=== PATIENT | female | born 1990 | race Caucasian/White ===

== ENCOUNTER 2019-12-21 14:33 | Observation (INO) | payer MEDICAID, OTHER ==
[~2019-12-21] VITALS: Ht 160 cm; Wt 129.3 kg
[2019-12-21] MEDS ORDERED: BREX3TAB PO (14:54)
[2019-12-21] MEDS ORDERED: CITA40TA19 PO (14:54)
[2019-12-21 15:43] LABS: BILIRUBIN,URINE NEGATIVE (NEGATIVE); CLARITY,URINE SL CLOUDY; COLOR,URINE YELLOW; GLUCOSE, URINE (UA) NEGATIVE (NEGATIVE); KETONES,URINE NEGATIVE (NEGATIVE); LEUKOCYTE ESTERASE ,URINE NEGATIVE (NEGATIVE); NITRITE,URINE NEGATIVE (NEGATIVE); PH,URINE 5.5 (5-9); PROTEIN,URINE NEGATIVE (NEGATIVE)
--- NOTE | 2019-12-21 15:43 | ED Psychosocial ---
General Chief Complaint: Psych/Social Disorder Stated Complaint: SUICIDAL Nursing Triage Note: PT STATES HAVING SUICIDAL THOUGHTS, FIRST TIME OF HAVING THESE THOUGHTS, STRESS FROM KIDS AND WORK, RECENT CHANGE IN MEDICATION, NO SPECIFIC PLAN. History of Present Illness Date Seen by Provider: Dec 21, 2019 Time Seen by Provider: 14:45 Initial Comments 29 year old female presents for suicidal ideation. She reports increased stress at home. She's been having difficulty sleeping, she takes bendaryl nightly and has tried melatonin. She has been on multiple antidepressants she is currently on citalopram, has been taking this for approximately one and a half weeks. She does have an appointment with mental health at the end of this month to [facility]. No plan for suicide but she has thought about several options. No thoughts of her harming others. She does think about different ways that she could harm herself including using razors to cut herself or causing a motor vehicle accident, the incidence are increasing in frequency. She has a 9 and 2-year-old children at home, that add to the stress. Her mother is available to help with childcare and for support system for her. She also reports anxiety, she takes Vistaril 2-3 times daily for this. Patient feels she has reached a point that she is not safe at home alone or with her kids, she doesn't feel she has the self control to not harm herself. She is very tearful. Timing/Duration: this morning, getting worse Severity: moderate Associated Symptoms: impaired concentration, insomnia, suicidal ideation Allergies and Home Medications Allergies Coded Allergies: No Known Drug Allergies (Unverified , 12/21/19) Home Medications Brexpiprazole 3 Mg Tablet, 3 MG PO DAILY, (Reported) Citalopram Hydrobromide 40 Mg Tablet, 40 MG PO DAILY, (Reported) Patient Home Medication List Home Medication List Reviewed: Yes Review of Systems Constitutional: no symptoms reported, see HPI : No Psychiatric/Neurological: See HPI, Depressed, Emotional Problems All Other Systems Reviewed Negative Unless Noted: Yes Past Wzjanav-Eocejc-Lufhbg Hx Past Med/Social Hx: Reviewed Nursing Past Med/Soc Hx Patient Social History Alcohol Use: Denies Use Recreational Drug Use: No Smoking Status: Never a Smoker Recent Foreign Travel: No Contact w/Someone Who Travel: No Recent Infectious Disease Expo: No Recent Hopitalizations: No Seasonal Allergies Seasonal Allergies: Yes Past Medical History Surgeries: Yes Section, Gallbladder Respiratory: Yes Asthma Cardiac: No Neurological: Yes Headaches /Migraines : No Last Menstrual Period: Dec 08, 2019 Genitourinary: No Gastrointestinal: No Musculoskeletal: No Endocrine: No HEENT: No Cancer: No Psychosocial: Yes Anxiety, Depression Integumentary: No Physical Exam Vital Signs - First Documented 12/21/19 14:40 Temp 37.4 Pulse 99 Resp 22 B/P (MAP) 140/86 (104) Pulse Ox 97 O2 Delivery Room Air Capillary Refill : Less Than 3 Seconds Height, Weight, BMI Height: '" Weight: lbs. oz. kg; 50.00 BMI Method: General Appearance: WD/WN, no apparent distress HEENT: PERRL/EOMI, normal ENT inspection, TMs normal, pharynx normal Neck: non-tender, full range of motion, supple, normal inspection Respiratory: chest non-tender, lungs clear, normal breath sounds Cardiovascular: normal peripheral pulses, regular rate, rhythm, no edema Gastrointestinal: normal bowel sounds, non tender, soft Neurologic/Psychiatric: take out waiter II-XII nml as tested, no motor/sensory deficits, alert, normal mood/affect, oriented x 3 Appearance/Memory: appropriate appearance Behavior/Eye Contact: cooperative, normal speech, avoids eye contact, other (flat affect) Thoughts/Hallucinations: normal thought pattern Skin: normal color, warm/dry Lymphatic: no adenopathy Progress/Results/Core Measures Results/Orders Lab Results Laboratory Tests Test 12/21/19 15:27 12/21/19 15:54 12/21/19 19:04 Range/Units Urine Color YELLOW Urine Clarity SL CLOUDY Urine pH 5.5 5-9 Urine Specific [place] >=1.030 1.016-1.022 Urine Protein NEGATIVE NEGATIVE Urine Glucose (UA) NEGATIVE NEGATIVE Urine Ketones NEGATIVE NEGATIVE Urine Nitrite NEGATIVE NEGATIVE Urine Bilirubin NEGATIVE NEGATIVE Urine Urobilinogen 1.0 < = 1.0 MG/DL Urine Leukocyte Esterase NEGATIVE NEGATIVE Urine RBC (Auto) TRACE-I NEGATIVE Urine RBC NONE /HPF Urine WBC RARE /HPF Urine Crystals NONE /LPF Urine Bacteria FEW H /HPF Urine Casts NONE /LPF Urine Mucus NEGATIVE /LPF Urine Culture Indicated NO Urine Opiates Screen NEGATIVE NEGATIVE Urine Oxycodone Screen NEGATIVE NEGATIVE Urine Methadone Screen NEGATIVE NEGATIVE Urine Propoxyphene Screen NEGATIVE NEGATIVE Urine Barbiturates Screen NEGATIVE NEGATIVE Ur Tricyclic Antidepressants Screen NEGATIVE NEGATIVE Urine Phencyclidine Screen NEGATIVE NEGATIVE Urine Amphetamines Screen NEGATIVE NEGATIVE Urine Methamphetamines Screen NEGATIVE NEGATIVE Urine Benzodiazepines Screen NEGATIVE NEGATIVE Urine Cocaine Screen NEGATIVE NEGATIVE Urine Cannabinoids Screen POSITIVE H NEGATIVE White Blood Count 9.1 4.3-11.0 10^3/uL Red Blood Count 4.20 3.80-5.11 10^6/uL Hemoglobin 11.2 L 11.5-16.0 g/dL Hematocrit 35 35-52 % Mean Corpuscular Volume 82 80-99 fL Mean Corpuscular Hemoglobin 27 25-34 pg Mean Corpuscular Hemoglobin Concent 32 32-36 g/dL Red Cell Distribution Width 13.6 10.0-14.5 % Platelet Count 331 130-400 10^3/uL Mean Platelet Volume 10.4 9.0-12.2 fL Immature Granulocyte % (Auto) 0 % Neutrophils (%) (Auto) 65 42-75 % Lymphocytes (%) (Auto) 27 12-44 % Monocytes (%) (Auto) 6 0-12 % Eosinophils (%) (Auto) 1 0-10 % Basophils (%) (Auto) 0 0-10 % Neutrophils # (Auto) 5.9 1.8-7.8 10^3/uL Lymphocytes # (Auto) 2.5 1.0-4.0 10^3/uL Monocytes # (Auto) 0.5 0.0-1.0 10^3/uL Eosinophils # (Auto) 0.1 0.0-0.3 10^3/uL Basophils # (Auto) 0.0 0.0-0.1 10^3/uL Immature Granulocyte # (Auto) 0.0 0.0-0.1 10^3/uL Sodium Level 141 135-145 MMOL/L Potassium Level 3.6 3.6-5.0 MMOL/L Chloride Level 104 98-107 MMOL/L Carbon Dioxide Level 27 21-32 MMOL/L Anion Gap 10 5-14 MMOL/L Blood Urea Nitrogen 11 7-18 MG/DL Creatinine 0.78 0.60-1.30 MG/DL Estimat Glomerular Filtration Rate > 60 BUN/Creatinine Ratio 14 Glucose Level 103 70-105 MG/DL Calcium Level 9.1 8.5-10.1 MG/DL Corrected Calcium 9.0 8.5-10.1 MG/DL Total Bilirubin 0.4 0.1-1.0 MG/DL Aspartate Amino Transf (AST/SGOT) 17 5-34 U/L Alanine Aminotransferase (ALT/SGPT) 23 0-55 U/L Alkaline Phosphatase 69 40-136 U/L Total Protein 7.5 6.4-8.2 GM/DL Albumin 4.1 3.2-4.5 GM/DL TSH [place] Testing 2.93 0.35-4.94 UIU/ML Salicylates Level < 5.0 L 5.0-20.0 MG/DL Acetaminophen Level < 10 L 10-30 UG/ML Serum Alcohol < 10 <10 MG/DL Coronavirus 2019 (SHIRA) Negative Negative My Orders Orders - CEDRIC SHEIKH Urine Bedside (12/21/19 14:40) Ua Culture If Indicated (12/21/19 14:40) Cbc With Automated Diff (12/21/19 14:40) Comprehensive Metabolic Panel (12/21/19 14:40) Alcohol (12/21/19 14:40) Drug Screen Stat (Urine) (12/21/19 14:40) Acetaminophen (12/21/19 14:40) Salicylate (12/21/19 14:40) Ekg Tracing (12/21/19 14:40) Ed Iv/Invasive Line Start (12/21/19 14:40) Thyroid Analyzer (12/21/19 14:40) Monitor-Rhythm Ecg Trace Only (12/21/19 14:40) Acetaminophen Tablet/Caplet (Tylenol T (12/21/19 16:46) General/Regular (12/21/19 Dinner) Covid 19 Inhouse Test (12/21/19 18:56) Vital Signs/I&O 12/21/19 12/21/19 12/21/19 14:40 17:30 20:21 Temp 37.4 37.4 36.7 Pulse 99 82 Resp 22 20 B/P (MAP) 140/86 (104) 144/87 (104) Pulse Ox 97 94 O2 Delivery Room Air Room Air Blood Pressure Mean: 104 Progress Progress Note : Time: 14:45 Progress Note Patient seen and evaluated, will obtain labs. Spoke to [facility] mental health, they can make outpatient plan for her. Patient and this provider do not feel she can be managed outpatient, as her suicidal thoughts are increasing and she feels that she can no longer control her ideations, especially if home alone or in her car. A friend drove her here and her mother is watching the children. 1530 discussed options and patient would prefer consideration for in patient management. 1600 no bed available at [place] or [facility]. Patient requesting Tylenol for headache, will give 650 mg orally. 1700 Bed available at [place], records faxed to review. Patient denies any complaints at this time. 1800 Follow up with [place], they did not receive fax, records sent again. Patient has no complaints at this time dinner tray ordered. 1840 Spoke to [place], they require patient to have a Negative COVID-19 test, will complete in house test. They will review all requests from [phone] tonight. 191 No M-H beds at [facility], [facility] or [facility]. Patient using her phone and exam room at this time. [address] Coyne, agreed to admit here with tele-sitter. Will arrange out-patient MH. 1944 patient agreeable with plan to admit here overnight. No requests at this time. Initial ECG Impression Date: Dec 21, 2019 Initial ECG Impression Time: 15:07 Initial ECG Rate: 99 Initial ECG Rhythm: Normal Sinus Initial ECG Intervals: Normal Initial ECG Intervals MN 152, QRSD 80, QT 344, QTc 442. [place] P 50, QRS 44, T 29 Initial ECG Impression: Normal Initial ECG Comparisson: No Previous ECG Available Departure Impression Primary Impression: Depression Qualified Codes: F32.9 - Major depressive disorder, single episode, unspecified Additional Impression: Suicidal ideations Disposition: ADMITTED INPATIENT Condition: Stable Admissions Decision to Admit Reason: Admit from ER (General) Decision to Admit/Date: Dec 21, 2019 Time/Decision to Admit Time: 19:00 Departure-Patient Inst. Referrals: [facility] Add. Discharge Instructions: You have an appt with Mental/Behavioral Health at [address] on Dec 28 at 8:00 am, Betty Mota. Call for appt with Francine Trimble, if symptoms are not improving or worsen, any medication changes. Call [phone] to speak to a mental health provider, 29/09. Call 911, if you feel thoughts to harm yourself or others. Find a hobby or start walking 15 min daily. All discharge instructions reviewed with patient and/or family. Voiced understanding. Copy Copies To 1: JOSIAS CALIX AMY ARNP Dec 21, 2019 15:43
[2019-12-21 16:01] LABS: BASOPHILS % (AUTO) 0 % (0-10); EOSINOPHILS # (AUTO) 0.1 10^3/uL (0.0-0.3); EOSINOPHILS % (AUTO) 1 % (0-10); HEMATOCRIT 35 % (35-52); HEMOGLOBIN 11.2 g/dL (11.5-16.0); LYMPHOCYTES # (AUTO) 2.5 10^3/uL (1.0-4.0); LYMPHOCYTES % (AUTO) 27 % (12-44); MEAN CORPUSCULAR HEMOGLOBIN 27 pg (25-34); MEAN CORPUSCULAR HGB CONC 32 g/dL (32-36); MEAN CORPUSCULAR VOLUME 82 fL (80-99); MEAN PLATELET VOLUME 10.4 fL (9.0-12.2); MONOCYTES # (AUTO) 0.5 10^3/uL (0.0-1.0); MONOCYTES % (AUTO) 6 % (0-12); NEUTROPHILS # (AUTO) 5.9 10^3/uL (1.8-7.8); NEUTROPHILS % (AUTO) 65 % (42-75); PLATELET COUNT 331 10^3/uL (130-400); WHITE BLOOD COUNT 9.1 10^3/uL (4.3-11.0)
[2019-12-21 16:03] LABS: AMPHETAMINE SCREEN, URINE NEGATIVE (NEGATIVE); BARBITURATE SCREEN URINE NEGATIVE (NEGATIVE); BENZODIAZEPINES SCREEN URINE NEGATIVE (NEGATIVE); CANNABINOID SCREEN, URINE POSITIVE (NEGATIVE); COCAINE SCREEN URINE NEGATIVE (NEGATIVE); METHADONE STAT NEGATIVE (NEGATIVE); METHAMPHETAMINE SCREEN URINE S NEGATIVE (NEGATIVE); OPIATE SCREEN URINE NEGATIVE (NEGATIVE); OXYCODONE STAT NEGATIVE (NEGATIVE); PROPOXYPHENE STAT NEGATIVE (NEGATIVE); TRICYCLIC ANTIDEPRESSANTS SCRE NEGATIVE (NEGATIVE)
[2019-12-21 16:14] LABS: BACTERIA,URINE FEW /HPF; WBC,URINE RARE /HPF
[2019-12-21 16:14] LABS: ALBUMIN 4.1 GM/DL (3.2-4.5); CHLORIDE 104 MMOL/L (98-107); POTASSIUM 3.6 MMOL/L (3.6-5.0); SODIUM 141 MMOL/L (135-145)
[2019-12-21 16:15] LABS: CALCIUM 9.1 MG/DL (8.5-10.1)
[2019-12-21 16:16] LABS: GLUCOSE 103 MG/DL (70-105)
[2019-12-21 16:17] LABS: CARBON DIOXIDE 27 MMOL/L (21-32); TOTAL PROTEIN 7.5 GM/DL (6.4-8.2)
[2019-12-21 16:18] LABS: BILIRUBIN,TOTAL 0.4 MG/DL (0.1-1.0)
[2019-12-21 16:20] LABS: ALKALINE PHOSPHATASE 69 U/L (40-136); CREATININE SERUM 0.78 MG/DL (0.60-1.30); GFR ESTIMATED > 60
[2019-12-21 16:21] LABS: BUN/CREATININE RATIO 14
[2019-12-21 16:22] LABS: ACETAMINOPHEN < 10 UG/ML (10-30)
[2019-12-21 16:23] LABS: ALANINE AMINOTRANSFERASE 23 U/L (0-55); SALICYLATE < 5.0 MG/DL (5.0-20.0)
[2019-12-21] MEDS ORDERED: ACETAMINOPHEN 325 MG TABLET PO STA (16:46)
--- NOTE | 2019-12-21 19:32 | NUR ---
THIS INTERNAL AUDIT MANAGER/RN SPOKE WITH ANUJA MARLEYMINE CAR MECHANIC RN ABOUT PT HAVING RAPID COVID FOR POSSIBLE OUTSIDE PLACEMENT. RAPID COVID NEGATIVE AND PT WILL NOW BE ADMITTED OBSERVATION TO MEDICAL UNIT. CEDRIC SHEIKH APRN CANCELLED SEND OUT COVID TEST PT DID NOT MEET CRITERIA. ANUJA MARLEYMINE CAR MECHANIC NOTIFIED AND ADVISED THIS INTERNAL AUDIT MANAGER/RN THAT PT WOULD NOT NEED TO BE COVID PUI ON ADMIT.
[2019-12-21 20:30] VITALS: BP_SYST 144; BP_SYST 155; BP_DIAS 87; BP_DIAS 92
--- NOTE | 2019-12-21 20:30 | NUR ---
HODA MARIAA admitted to room 407-1, with an admitting diagnosis of SUICIDAL IDEATIONS, DEPRESSION, AND ANXIETY, on 12/21/19 from ER via , accompanied by STAFF MEMBER.HODA LEROY introduced to surroundings, call light, bed controls, phone, TV, temperature control, lights, meal times, smoking policy, visitor policy, side rail policy, bathrooms and showers. Patient Rights given to patient in the handbook.HODA LEROY verbalizes understanding that [facility] is not responsible for the loss or damage to any personal effects or valuables that are kept in the patients possession during their hospitalization.
--- NOTE | 2019-12-21 20:35 | NUR ---
TELESITTER NOTIFIED OF PATIENT'S SITUATION. TELESITTER SET UP IN THE ROOM AT THIS TIME. WILL CONTINUE TO MONITOR.
[2019-12-21 20:47] VITALS: BP 155/92
[2019-12-21] MEDS ORDERED: ONDANSETRON 4 MG (ZOFRAN) ORAL DISSOLVE TAB PO PRN (21:30)
[2019-12-21] MEDS ORDERED: ACETAMINOPHEN 325 MG TABLET PO PRN (21:30)
[2019-12-21] MEDS ORDERED: ALPRAZolam 0.25 MG (XANAX) TAB PO PRN (21:30)
[2019-12-21] MEDS ORDERED: ZOLPIDEM 5 MG (AMBIEN) TAB ONE (22:13)
[2019-12-22] VITALS: BP 131/84
[2019-12-22 03:58] VITALS: BP 123/65
[2019-12-22 06:00] LABS: BASOPHILS % (AUTO) 0 % (0-10); EOSINOPHILS # (AUTO) 0.2 10^3/uL (0.0-0.3); EOSINOPHILS % (AUTO) 3 % (0-10); HEMATOCRIT 34 % (35-52); HEMOGLOBIN 10.8 g/dL (11.5-16.0); LYMPHOCYTES # (AUTO) 2.5 10^3/uL (1.0-4.0); LYMPHOCYTES % (AUTO) 34 % (12-44); MEAN CORPUSCULAR HEMOGLOBIN 26 pg (25-34); MEAN CORPUSCULAR HGB CONC 32 g/dL (32-36); MEAN CORPUSCULAR VOLUME 84 fL (80-99); MEAN PLATELET VOLUME 10.5 fL (9.0-12.2); MONOCYTES # (AUTO) 0.5 10^3/uL (0.0-1.0); MONOCYTES % (AUTO) 7 % (0-12); NEUTROPHILS # (AUTO) 4.1 10^3/uL (1.8-7.8); NEUTROPHILS % (AUTO) 56 % (42-75); PLATELET COUNT 304 10^3/uL (130-400); WHITE BLOOD COUNT 7.3 10^3/uL (4.3-11.0)
[2019-12-22 06:20] LABS: ALANINE AMINOTRANSFERASE 21 U/L (0-55); ALBUMIN 3.7 GM/DL (3.2-4.5); ALKALINE PHOSPHATASE 61 U/L (40-136); BILIRUBIN,TOTAL 0.4 MG/DL (0.1-1.0); BUN/CREATININE RATIO 18; CALCIUM 8.9 MG/DL (8.5-10.1); CARBON DIOXIDE 26 MMOL/L (21-32); CHLORIDE 103 MMOL/L (98-107); CREATININE SERUM 0.73 MG/DL (0.60-1.30); GFR ESTIMATED > 60; GLUCOSE 102 MG/DL (70-105); POTASSIUM 3.9 MMOL/L (3.6-5.0); SODIUM 138 MMOL/L (135-145); TOTAL PROTEIN 6.9 GM/DL (6.4-8.2)
[2019-12-22 08:00] VITALS: BP 127/83
[2019-12-22] MEDS ORDERED: HYDR50TA76 PO (08:34)
[2019-12-22] MEDS ORDERED: CITA40TA11 PO (08:34)
[2019-12-22] MEDS ORDERED: CETI10TA17 PO (08:34)
[2019-12-22] MEDS ORDERED: ACET-2267 PO (08:34)
--- NOTE | 2019-12-22 08:35 | NUR ---
SPOKE WITH THE PT AND WENT THRU THE EXT MED HISTORY TO COMPLETE THE MED REC ON 11-25-2019 TRINTELLIX 10MG #60/30DS IS SHOWING ON THE EXT MED HISTORY HOWEVER PT SAYS SHE IS NOT TAKING THIS AND IS ONLY TAKING REXULTI, HYDROXYZINE AND CELEXA OTC MEDS: TYLENOL
--- NOTE | 2019-12-22 10:13 | NUR ---
CM/SS: Visited with pt as per her current mental health status related to depression and anxiety Plan: Pt to have an appointment with [facility] - at 6:00pm with Betty Mota - this will be pts mental health intake that was ordinally scheduled for next week. Summary: Pt is in bed at the time of the visit. Pt reports some frustration as to her medications and getting them straight related to her depression and anxiety. Pt reports she is currently not having thoughts of wanting to harm herself. Pt reports she just needs her meds to get straight. Pt has intake appt for next week at [facility] on 12/26. Sounds like pt may of been seeing a nurse practitioner at the [facility] and she was making some medication changes. Pt talks about her two children who are 7 and 2. She reports her son had head lice and that was stressful. Pt also has some legal issues - she would not discuss the specifics of that matter. She does report her mother is is a support and is able to watch her children. She also has a good friend that brought her to the emergency department. This worker educates her on trying to get an appt for her possibly today - work schedule is discussed. Pt does work at [employer] in the [place] dept. She is off today but will have to work on tomorrow 11am -6pm. This worker will follow up. Talk with Dr Coyne - let her know of the plan - she should be able to have pt dismissed in time to make the appt at 6:00pm this evening. She will talk with pt and if anything changes she will let this worker know.
--- NOTE | 2019-12-22 11:51 | Short Stay Summary ---
REGINAJULIANA X MED STUDENT 12/22/19 1151: HPI History of Present Illness: 29 y/o F presents w/ suicidal ideation. Pt stated that yesterday, she started having suicidal thoughts triggered by anxiety of her kids. Pt felt nervous, shaking, and overwhelming thoughts. Pt came to ER because she needed help. Pt thought it could be d/t medication switch from fluoxetine to trintellix to citalopram. Pt was switched b/c previous medications weren't effective. Pt took hydroxyzine but it didn't help and pt was still having anxiety. Pt states her thoughts began 6 yrs ago that went away but came back d/t anxiety and medication changes. Pt states she only has thoughts about suicide via car accident or cutting herself. Pt states it's only ideas of self harm and plans do not involve anyone else. Nor has she had any previous attempts of suicide. Pt denies seeing a counselor. Source: patient Exam Limitations: no limitations Time Seen by Provider: 07:30 Attending Physician Ceferino Escalante MD PCP No,Local Physician Consult Date of Admission Dec 21, 2019 at 19:42 Home Medications Home Medications Reviewed patient Home Medication Reconciliation performed by pharmacy medication reconciliations appliance service technician and/or nursing. Patients Allergies have been reviewed. Hydroxyzine Rexulti citalopram Allergies Coded Allergies: No Known Drug Allergies (Unverified , 12/21/19) MTB-Ylsepp-Surrdm Hx Patient Social History Alcohol Use: Rarely Uses Recreational Drug Use: No Smoking Status: Never a Smoker Recent Foreign Travel: No Contact w/other who traveled: No Recent Hopitalizations: No Recent Infectious Disease Expo: No Past Medical History asthma, EMANUEL/migraines, anxiety/depression Family Medical History Significant Family History: Diabetes, Hypertension, Psychiatric Problems (mom - depression/anxiety) Family History: Diabetes mellitus 19 MOTHER FH: hypertension 19 MOTHER Review of Systems (CHC) Constitutional: no symptoms reported, see HPI EENTM: see HPI, no symptoms reported Respiratory: no symptoms reported, see HPI Cardiovascular: no symptoms reported, see HPI Gastrointestinal: no symptoms reported, see HPI Genitourinary: no symptoms reported, see HPI Musculoskeletal: no symptoms reported, see HPI Skin: no symptoms reported, see HPI Psychiatric/Neurological: No Symptoms Reported, See HPI All Other Systems Reviewed Negative Unless Noted: Yes Physical Exam-(CHC) Physical Exam Vital Signs VS - Last 72 Hours, by Label 12/21/19 12/21/19 12/21/19 12/21/19 14:40 17:30 20:21 20:30 Temp 37.4 37.4 36.7 36.5 Pulse 99 82 91 Resp 22 20 20 B/P (MAP) 140/86 (104) 144/87 (104) 155/92 (113) Pulse Ox 97 94 96 O2 Delivery Room Air Room Air Room Air 12/21/19 12/21/19 12/21/19 12/22/19 20:30 20:30 20:47 00:00 Temp 36.5 36.5 36.3 Pulse 91 91 91 Resp 20 20 16 B/P (MAP) 155/92 155/92 131/84 (100) Pulse Ox 96 96 96 O2 Delivery Room Air Room Air Room Air Room Air 12/22/19 03:58 Temp 36.1 Pulse 74 Resp 18 B/P (MAP) 123/65 (84) Pulse Ox 96 O2 Delivery Room Air Capillary Refill : Less Than 3 Seconds General Appearance: no apparent distress Respiratory: lungs clear, normal breath sounds, no respiratory distress, no accessory muscle use Cardiovascular: regular rate, rhythm, no murmur Short Stay Diagnosis Discharge Diagnosis-Short Stay Admission Diagnosis suicidal ideation Final Discharge Diagnosis suicidal ideation Conclusion Plan - appt w/ psychiatrist/psychologist today @6pm - refer to therapist - possibly add buspirone Clinical Quality Measures DVT/VTE Risk/Contraindication: Risk Factor Score Per Nursin RFS Level Per Nursing on Admit: 1=Low/No VTE PPX Copy Copies To 1: Dania Trimble APRN Assessment/Plan Assessment/Plan Admission Dx suicidal ideation Admission Status: Observation Reason for Inpatient Admission: thoughts of suicide (suicidal ideation) Assessment & Plan suicidal ideation - continue citalopram - appt today @6pm w/ psychiatrist/psychologist - refer to therapist - make sure pt is safe until appt - possibly add buspirone Supervisory-Addendum Brief Verification & Attestation Participated in pt care: history, MDM, physical Personally performed: exam, history, MDM Care discussed with: Medical Student Procedures: n/a n/a CEFERINO ESCALANTE MD 12/22/19 1636: Home Medications Allergies Coded Allergies: No Known Drug Allergies (Unverified , 12/21/19) ACI-Hiyymh-Xdkkfc Hx Family Medical History Family History: Diabetes mellitus 19 MOTHER FH: hypertension 19 MOTHER Short Stay Diagnosis Discharge Diagnosis-Short Stay Admission Diagnosis Suicidal ideation Final Discharge Diagnosis Suicidal ideation Depression Anxiety Conclusion Plan Pt feeling better in the morning and able to get therapy appointment moved from next week to today. Add buspirone for anxiety and discussed may need to see Psychiatry for further medication recommendations. Copy Copies To 1: ANTHONY Hill ELIZABETH X MED STUDENT Dec 22, 2019 11:51 CEFERINO ESCALANTE MD Dec 22, 2019 16:36
[2019-12-22 12:00] VITALS: BP 131/84
--- NOTE | 2019-12-22 12:38 | NUR ---
CM/SS: Information on the Behavioral Health Appointment and Intake is provided to pt. She initially asked if the appointment could be earlier. This worker explains that this is the only time that available. Pt reports she will make it work. Pt is also given information on the emergency save line - [phone] and the [facility] program and contact information. Pt is wished well.
[2019-12-22] MEDS ORDERED: BUSP10TA95 PO (14:05)
--- NOTE | 2019-12-22 14:09 | Discharge Summary ---
Discharge Inst-[facility] Discharge Medications New, Converted or Re-Newed RX: Transmitted to Pharmacy New Medications: Buspirone HCl (Buspirone HCl) 10 Mg Tablet 10 MG PO TID PRN for prn, #90 TAB 0 Refills Continued Medications: Acetaminophen (Tylenol Extra Strength) 500 Mg Tablet 1000 MG PO Q8H PRN for PAIN-MILD (1-4), TAB Brexpiprazole (Rexulti) 3 Mg Tablet 3 MG PO DAILY, TAB Cetirizine HCl (Cetirizine HCl) 10 Mg Tablet 10 MG PO DAILY PRN for ALLERGY SYMPTOMS, TAB Citalopram Hydrobromide (Citalopram HBr) 40 Mg Tablet 40 MG PO DAILY, TAB Hydroxyzine HCl (Hydroxyzine HCl) 50 Mg Tablet 50 MG PO Q6H PRN for ANXIETY, TAB Patient Instructions Goal/Follow Up Appt: Follow up with Betty Mota at [facility] 12/21 at 6 pm Follow up with Sylwia Trimble on 12/22 at 9 am. Activity & Diet Discharge Diet: Regular Diet Activity as Tolerated: Yes Orders-Post D/C & Referrals Pneu Vac Indicated: Yes CEFERINO ESCALANTE MD Dec 22, 2019 14:09
--- NOTE | 2019-12-22 14:45 | NUR ---
HODA LEROY demonstrates understanding of discharge instructions and accurately returns instructions upon questioning. Copy of Post-Discharge Instructions given to patient. HODA LEROY isble to manage continuing needs after discharge. Patients belongings returned to patient. Patient discharged from 407-1 on at 1445. HODA LEROY left floor via wheelchair, accompanied by a staff member, BILLY Littlejohn.
--- NOTE | 2019-12-22 15:24 | NUR ---
[employer] responded to referral. Pt has no muslim preference. She stated that she has been discharged and is waiting to be let go. She eager to leave and not inclined to get into issues of any depth. Cable Wirer offered blessing.
[2019-12-22] MEDS ORDERED: ZOLPIDEM 5 MG (AMBIEN) TAB PO SCH (21:00)
== END 2019-12-22 14:45 | disposition home or self-care (01) ==
LOC: ER 14:36 → UNDOADMOB 19:42 → 4TH 19:42 → UNDODISOB 12-22 14:45
PROVIDERS: ADMIT Family Medicine; ATTEND Family Medicine
DX: F32.9 Major depressive disorder, single episode, unspecified (principal); R45.851 Suicidal ideations; J45.909 Unspecified asthma, uncomplicated; G43.909 Migraine, unspecified, not intractable, without status migrainosus; F41.9 Anxiety disorder, unspecified; Z79.899 Other long term (current) drug therapy
CPT/HCPCS: 36415; 80053; 80306; 80320; 80329; 81000; 84443; 84703; 85025; 87635; 93005; G0378